=== PATIENT | male | born 2000 | race African-American/Black ===

== ENCOUNTER 2022-11-05 17:50 | Emergency (ER) | payer BC ==
[2022-11-05 18:28] VITALS: BP 138/82; PULSE 71; RESP 20; TEMP 98.8
[2022-11-05] MEDS ORDERED: FLUORESCEIN STRIPS 1 MG STRIP LEFT EYE ONE (18:52)
[2022-11-05] MEDS ORDERED: PROPARACAINE 0.5% OPHTH DROPS 15 ML BTL LEFT EYE STA (18:53)
--- NOTE | 2022-11-05 21:13 | ED ---
General Adult HPI - General Chief complaint: Head Injury Stated complaint: Rt eye pain Time Seen by Provider: 11/05/22 18:25 Source: patient Mode of arrival: ambulatory - History of Present Illness Initial comments: 22-year-old male presents to emergency department with a left eye injury. States that he was in a pool throwing a football [id number] when the tip of the football hit him in the left eye. Denies losing consciousness. Admits that he began having a visual disturbance in the eye. He describes a black spot in the central portion of his vision. He has photophobia. Patient does wear contacts. Reports that when the ball hit him, the contact fell ouf of the eye. He denies losing consciousness. No headaches. No neck pain. Incident happened at 1 PM this evening. He denies pain. No other alleviating, precipitating or modifying factors Review of Systems ROS Statement: Those systems with pertinent positive or pertinent negative responses have been documented in the HPI. ROS Other: All systems not noted in ROS Statement are negative. Past Medical History Past Medical History: No Reported History History of Any Multi-Drug Resistant Organisms: None Reported Past Surgical History: No Surgical Hx Reported Past Psychological History: No Psychological Hx Reported Smoking Status: Never smoker Past Alcohol Use History: None Reported Past Drug Use History: None Reported General Exam Limitations: no limitations General appearance: alert, in no apparent distress Head exam: Present: atraumatic, normocephalic, normal inspection Eye exam: Present: other (Left pupil is 6 mm, nonreactive. Right pupil is 4 mm and reactive. No hyphema present in the left pupil. No proptosis. Extraocular muscles are intact. Conjunctival injection. Pupil on the left is ovoid) ENT exam: Present: normal exam, mucous membranes moist Neck exam: Present: normal inspection. Absent: tenderness, meningismus, lymphadenopathy Respiratory exam: Present: normal lung sounds bilaterally. Absent: respiratory distress, wheezes, rales, rhonchi, stridor Cardiovascular Exam: Present: regular rate, normal rhythm, normal heart sounds. Absent: systolic murmur, diastolic murmur, rubs, gallop, clicks Neurological exam: Present: alert, oriented X3, CN II-XII intact Psychiatric exam: Present: normal affect, normal mood Course Vital Signs 11/05/22 18:21 Temperature 98.8 F Pulse Rate 71 Respiratory 20 Rate Blood Pressure 138/82 O2 Sat by Pulse 100 Oximetry Medical Decision Making - Medical Decision Making Was pt. sent in by a medical professional or institution (JAHAIRA Linn, [facility]FU[employer], urgent care, hospital, or senior care...) When possible be specific @ -No Did you speak to anyone other than the patient for history (EMS, parent, family, police, friend...)? What history was obtained from this source @ -No Did you review nursing and triage notes (agree or disagree)? Why? @ -I reviewed and agree with nursing and triage notes Were old charts reviewed (outside hosp., previous admission, EMS record, old EKG, old radiological studies, urgent care reports/EKG's, senior care records)? Report findings @ -No old charts were reviewed Differential Diagnosis (chest pain, altered mental status, abdominal pain women, abdominal pain men, vaginal bleeding, weakness, fever, dyspnea, syncope, headache, dizziness, GI bleed, back pain, seizure, CVA, palpatations, mental health, musculoskeletal)? @ -Globe rupture, glaucoma, corneal abrasion, hyphema, retinal detachment EKG interpreted by me (3pts min.). @ -Not done X-rays interpreted by me (1pt min.). @ -None done CT interpreted by me (1pt min.). @ -None done U/S interpreted by me (1pt. min.). @ -Bedside ultrasound is performed and does not demonstrate any acute findings per my interpretation What testing was considered but not performed or refused? (CT, X-rays, U/S, labs)? Why? @ -None What meds were considered but not given or refused? Why? @ -None Did you discuss the management of the patient with other professionals (professionals i.e. JAHAIRA Linn, REFUELER, lab, RT, psych nurse, social media strategist, addiction social worker, teacher, forward air controller/air officer, case operator)? Give summary @ -Dr. Dennis, um specialist at [facility] Was smoking cessation discussed for >3mins.? @ -No Was critical care preformed (if so, how long)? @ -No Were there social determinants of health that impacted care today? How? (Homelessness, low income, unemployed, alcoholism, drug addiction, transportation, low edu. Level, literacy, decrease access to med. care, penitentiary, rehab)? @ -No Was there de-escalation of care discussed even if they declined (Discuss DNR or withdrawal of care, Hospice)? DNR status @ -No What co-morbidities impacted this encounter? (DM, HTN, Smoking, COPD, CAD, Cancer, CVA, ARF, Chemo, Hep., AIDS, mental health diagnosis, sleep apnea, morbid obesity)? @ -None Was patient admitted / discharged? Hospital course, mention meds given and route, prescriptions, significant lab abnormalities, going to OR and other pertinent info. @ -Arrival patient was placed into room 28. Thorough history and physical exam was performed. Does have enlarged left pupil which is ovoid in nature and is nonreactive. Visual acuity in the right eye is 20/25. Visual acuity in the affected eye is 20/30. Eye is stained and there is no Jennifer sign. Ultrasound is performed which demonstrates no abnormal findings per my interpretation. I did attempt to check pressures. Left eye is measuring 11 mm. Right eye is measuring 23 mm. Because of these findings I did call and speak with the um specialist on-call at [facility]. Patient will be transferred to their facility for further evaluation. He is accepted by the ER doc, Dr. Lanza. She does recommend that the patient keeps his head up. She would like him to remain nothing by mouth. Eye is to be shielded without pressure dressing. Patient will go by private vehicle. Instructed to not eat and must go immediately there. Patient understood this. Given transfer packet. COBRA forms are signed and patient is transferred in stable condition with guarded prognosis Undiagnosed new problem with uncertain prognosis? @ -Yes Drug Therapy requiring intensive monitoring for toxicity (Heparin, Nitro, Insulin, Cardizem)? @ -No Were any procedures done? @ -No Diagnosis/symptom? @ -Acute left visual disturbance, blunt trauma left eye, anisicoria Acute, or Chronic, or Acute on Chronic? @ -acute Uncomplicated (without systemic symptoms) or Complicated (systemic symptoms)? @ -complicated Side effects of treatment? @ -No Exacerbation, Progression, or Severe Exacerbation? @ -No Poses a threat to life or bodily function? How? (Chest pain, [place], [place], pneumonia, PE, COPD, DKA, ARF, appy, cholecystitis, CVA, Diverticulitis, Homicidal, Suicidal, threat to staff... and all critical care pts) @ - yes- patient could have worsening in permanent vision loss Disposition Clinical Impression: Visual disturbance, Eye trauma, Anisocoria Disposition: OTHER INSTITUTION NOT DEFINED Condition: Serious Is patient prescribed a controlled substance at d/c from ED?: No Referrals: None,Stated [Primary Care Provider] - 1-2 days Time of Disposition: 21:13 - Out of Hospital Transfer - Req. Specs Out of Hospital Transfer - Requested Specifics: Other Emergency Center ([facility])
== END 2022-11-05 21:15 | disposition other institution (70) ==
LOC: EC 17:50
DX: S05.91XA Unspecified injury of right eye and orbit, initial encounter (principal); H57.02 Anisocoria; W21.01XA Struck by football, initial encounter
CPT/HCPCS: 99284